=== PATIENT | male | born 1985 | race Caucasian/White ===

== ENCOUNTER 2022-09-13 07:27 | Emergency (ER) | payer OTHER ==
[~2022-09-13] VITALS: Ht 177.8 cm; Wt 90.7 kg
[2022-09-13] MEDS ORDERED: LIDOCAINE VISCUS 2% 15 ML UDC ONE (07:39)
[2022-09-13] MEDS ORDERED: ONDANSETRON 4 MG/2 ML VIAL ONE (07:39)
[2022-09-13] MEDS ORDERED: MORPHINE SULFATE 2 MG/1 ML DISP.SYRIN ONE (07:40)
[2022-09-13] MEDS ORDERED: MAG HYDROX/AL HYDROX/SIMETH 30 ML LIQUID UDC ONE (07:44)
[2022-09-13] MEDS ORDERED: FAMOTIDINE. 20 MG/2 ML VIAL IV ONE (07:45)
--- NOTE | 2022-09-13 07:55 | NUR ---
PT STATES HE HAS ABDOMINAL PAIN THAT STARTED YESTERDAY AND IS OFF AND ON AND STARTED THIS AM AGAIN; 09/04 PATI BLAIR
--- NOTE | 2022-09-13 07:58 | NUR ---
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
[2022-09-13] MEDS: ONDANSETRON 4 MG/2 ML VIAL IV ONE (07:59)
[2022-09-13] MEDS: FAMOTIDINE. 20 MG/2 ML VIAL IV ONE (07:59)
[2022-09-13] MEDS: MAG HYDROX/AL HYDROX/SIMETH 30 ML LIQUID UDC PO ONE (07:59)
[2022-09-13] MEDS: LIDOCAINE VISCUS 2% 15 ML UDC MM ONE (07:59)
[2022-09-13] MEDS: MORPHINE SULFATE 2 MG/1 ML DISP.SYRIN IV ONE (08:15)
[2022-09-13 08:17] LABS: CARBON DIOXIDE 28 mmol/L (21-32); CHLORIDE 106 mmol/L (98-107); CREATININE 1.1 mg/dL (0.6-1.3); GLUCOSE 99 mg/dL (74-106); POTASSIUM 3.8 mmol/L (3.5-5.1); UREA NITROGEN, BLOOD 10 mg/dL (7-18)
[2022-09-13 08:18] LABS: HEMATOCRIT 41.5 % (36.7-47.1); MEAN CORPUSCULAR HEMOGLOBIN 29.9 uug (23.8-33.4); MEAN CORPUSCULAR VOLUME 83.2 fL (73.0-96.2); PLATELET COUNT (AUTO) 225 K/uL (152-348)
[2022-09-13] MEDS: IV NORMAL SALINE 1000 ML BAG IV ONE (08:20)
[2022-09-13 08:24] LABS: ALANINE AMINOTRANSFERASE 33 U/L (16-63); ALKALINE PHOSPHATASE 108 U/L (50-136); ASPARTATE AMINOTRANSFERASE 21 U/L (15-37); BILIRUBIN,TOTAL 0.3 mg/dL (0.2-1.0); LIPASE 127 U/L (73-393); TOTAL PROTEIN, SERUM 7.2 g/dL (6.4-8.2)
[2022-09-13 08:26] LABS: BILIRUBIN,DIRECT < 0.1 mg/dL (0.0-0.2)
[2022-09-13 09:08] LABS: *BILIRUBIN,URIN NEGATIVE (NEGATIVE); *BLOOD, URINE NEGATIVE (NEGATIVE); *CLARITY,URINE CLEAR (CLEAR); *COLOR,URINE YELLOW (YELLOW); *KETONES,URINE NEGATIVE (NEGATIVE); *UROBILINOGEN,URINE 0.2 E.U./dl (NORMAL); LEUKOCYTE ESTERASE ,URINE NEGATIVE (NEGATIVE); NITRITE, URINE NEGATIVE (NEGATIVE); PH,URINE 8.5 (5.0-8.0); UGLUCOSE NEGATIVE (NEGATIVE)
[2022-09-13 09:45] LABS: ETHANOL < 3 MG/DL (0-0)
[2022-09-13 09:48] LABS: *AMPHETAMINE, URINE NEGATIVE (NEGATIVE); *CANNABINOID, URINE NEGATIVE (NEGATIVE); *COCCAINE, URINE NEGATIVE (NEGATIVE); *OPIATE, URINE POSITIVE (NEGATIVE); *PHENCYCLIDINE SCREEN,URINE NEGATIVE (NEGATIVE)
[2022-09-13] MEDS ORDERED: FAMO-132 PO (10:16)
[2022-09-13] MEDS ORDERED: HYDR-3974 PO (10:16)
[2022-09-13] MEDS ORDERED: SIME125C81 PO (10:16)
[2022-09-13] MEDS ORDERED: ONDA4TAB5 PO (10:16)
[2022-09-13 11:25] VITALS: BP 129/78
--- NOTE | 2022-09-13 11:26 | NUR ---
Patient discharged to home in stable condition. Written and verbal after care instructions given. Patient verbalizes understanding of instructions. Stressed follow up or return to ER for worsening s/s.
[2022-09-14] MEDS ORDERED: ACYC200C31 PO (18:24)
[2022-09-14] MEDS ORDERED: OXYC-128 PO (22:32)
[2022-09-14] MEDS ORDERED: LEVO500T90 PO (22:32)
[2022-09-14] MEDS ORDERED: METR500T PO (22:32)
== END 2022-09-13 11:25 | disposition home or self-care (01) ==
LOC: ER 07:29
DX: R10.12 Left upper quadrant pain (principal)
CPT/HCPCS: 80076; 80048; 81003; 83690; 85025; 87040 ×2; 36415; 71045; 74176; 99285; 96361; 96374; 96375; 80320; 80307; J3490; J2405; J2270; J7040; G0480

== ENCOUNTER 2022-09-14 18:07 | Emergency (ER) | payer OTHER ==
[~2022-09-14] VITALS: Ht 177.8 cm; Wt 90.7 kg
[~2022-09-14 18:07] MED LIST: FAMO-132 PO; HYDR-3974 PO; ONDA4TAB5 PO; SIME125C81 PO
[2022-09-14] MEDS ORDERED: ACYC200C31 PO (18:24)
--- NOTE | 2022-09-14 18:33 | NUR ---
Dr Arrieta at the bedside for MSE.
[2022-09-14] MEDS ORDERED: HYDROMORPHONE 1 MG/1 ML DISP.SYRIN IV ONE (18:45)
[2022-09-14] MEDS ORDERED: ONDANSETRON 4 MG/2 ML VIAL IV ONE (18:45)
[2022-09-14] MEDS ORDERED: IV NORMAL SALINE 1000 ML BAG IV ONE (18:45)
[2022-09-14] MEDS ORDERED: ONDANSETRON 4 MG/2 ML VIAL ONE (18:49)
[2022-09-14] MEDS ORDERED: HYDROMORPHONE 2 MG/1 ML DISP.SYRIN ONE (18:49)
[2022-09-14 19:03] LABS: HEMATOCRIT 43.1 % (36.7-47.1); MEAN CORPUSCULAR HEMOGLOBIN 29.2 uug (23.8-33.4); MEAN CORPUSCULAR VOLUME 83.8 fL (73.0-96.2); PLATELET COUNT (AUTO) 208 K/uL (152-348)
[2022-09-14 19:07] LABS: CREATININE 1.3 mg/dL (0.6-1.3); POTASSIUM 3.8 mmol/L (3.5-5.1)
--- NOTE | 2022-09-14 19:08 | NUR ---
Hands off report given to Dena ORELLANA.
--- NOTE | 2022-09-14 19:10 | NUR ---
Received report from Kamla ORELLANA.
[2022-09-14 19:21] LABS: BILIRUBIN,DIRECT 0.1 mg/dL (0.0-0.2); BILIRUBIN,TOTAL 0.7 mg/dL (0.2-1.0); TOTAL PROTEIN, SERUM 7.9 g/dL (6.4-8.2)
[2022-09-14] MEDS ORDERED: IV NS 1000 ML 1,000 ML IV ONE (20:45)
--- NOTE | 2022-09-14 21:10 | NUR ---
Patient walked to the bathroom with a steady gait. Friend at bedside.
--- NOTE | 2022-09-14 21:12 | NUR ---
Contacted Radiology to F/U with patient's results.
[2022-09-14] MEDS ORDERED: METRONIDAZOLE 500 MG/NS 100 ML PIGGYBACK IV ONE (21:30)
[2022-09-14] MEDS ORDERED: levoFLOXacin 500 MG/D5W 100ML PIGGYBACK IV ONE (21:30)
[2022-09-14] MEDS ORDERED: levoFLOXacin 500 MG/D5W 100 ML ONE (21:33)
[2022-09-14] MEDS ORDERED: METRONIDAZOLE 500 MG/NS 100ML 100 ML IV ONE (21:33)
[2022-09-14] MEDS ORDERED: METR500T PO (22:32)
[2022-09-14] MEDS ORDERED: LEVO500T90 PO (22:32)
[2022-09-14] MEDS ORDERED: OXYC-128 PO (22:32)
--- NOTE | 2022-09-14 22:48 | NUR ---
Patient discharged to home in stable condition. A/O x 4. NAD noted. Ambulatory with steady gait. All belongings with patient. Written and verbal after care instructions given. Patient verbalizes understanding of instructions. Stressed follow up or return to ER for worsening s/s.
[2022-09-14 22:54] VITALS: BP 130/71
== END 2022-09-14 22:48 | disposition home or self-care (01) ==
LOC: ER 18:07
DX: K52.9 Noninfective gastroenteritis and colitis, unspecified (principal); R11.2 Nausea with vomiting, unspecified; R10.12 Left upper quadrant pain; J98.11 Atelectasis
CPT/HCPCS: 99285; 96365; 71045; 96375; 96367; 96361; 80076; 80048; 83690; 85025; 36415; 93005; 74021; 83605; J1956; J3490; J2405; J1170; J7040 ×2; A4663

== ENCOUNTER 2022-09-16 12:06 | Emergency (ER) | payer OTHER ==
[~2022-09-16] VITALS: Ht 177.8 cm; Wt 90.7 kg
[~2022-09-16 12:06] MED LIST changes: +ACYC200C31 PO; +LEVO500T90 PO; +METR500T PO; -ONDA4TAB5 PO; +OXYC-128 PO; -SIME125C81 PO
[2022-09-16] MEDS ORDERED: LORAZEPAM 2 MG/1 ML VIAL IV ONE (12:15)
[2022-09-16] MEDS ORDERED: LORAZEPAM 2 MG/1 ML VIAL ONE (12:26)
[2022-09-16 12:51] LABS: HEMATOCRIT 42.5 % (36.7-47.1); MEAN CORPUSCULAR HEMOGLOBIN 29.1 uug (23.8-33.4); MEAN CORPUSCULAR VOLUME 82.8 fL (73.0-96.2); PLATELET COUNT (AUTO) 223 K/uL (152-348)
--- NOTE | 2022-09-16 13:09 | NUR ---
Patient is resting comfortably on gurney with eyes closed. PATIENT IS PAIN FREE AT THIS TIME.
[2022-09-16 13:10] LABS: ALANINE AMINOTRANSFERASE 30 U/L (16-63); ALKALINE PHOSPHATASE 87 U/L (50-136); ASPARTATE AMINOTRANSFERASE 17 U/L (15-37); BILIRUBIN,DIRECT 0.1 mg/dL (0.0-0.2); BILIRUBIN,TOTAL 0.6 mg/dL (0.2-1.0); CARBON DIOXIDE 24 mmol/L (21-32); CHLORIDE 102 mmol/L (98-107); CREATININE 1.3 mg/dL (0.6-1.3); GLUCOSE 110 mg/dL (74-106); POTASSIUM 3.4 mmol/L (3.5-5.1); TOTAL PROTEIN, SERUM 7.9 g/dL (6.4-8.2); UREA NITROGEN, BLOOD 14 mg/dL (7-18)
[2022-09-16] MEDS ORDERED: DICYCLOMINE HCL 20 MG TABLET PO STA (13:41)
[2022-09-16] MEDS ORDERED: PANTOPRAZOLE SODIUM IV 40 MG in IV DEXTROSE 5% 100 ML IV ONE (13:45)
[2022-09-16] MEDS ORDERED: PANTOPRAZOLE SODIUM 40 MG VIAL ONE (13:46)
[2022-09-16] MEDS ORDERED: DICYCLOMINE HCL 20 MG TABLET ONE (13:46)
[2022-09-16 14:33] LABS: *MONOTEST NEGATIVE (NEGATIVE)
--- NOTE | 2022-09-16 14:42 | NUR ---
IV removed. Catheter intact and site benign. Pressure and 4x4 gauze applied to site. No bleeding noted. Patient discharged to home in stable condition with slow steady gait. Written and verbal after care instructions given to aptient and partner. Patient and partner verbalized understanding and compliance of instructions. Stressed follow up with primary doctor and gastroenteritis or return to ER for worsening s/s.
== END 2022-09-16 14:43 | disposition home or self-care (01) ==
LOC: ER 12:08
DX: F41.0 Panic disorder [episodic paroxysmal anxiety] (principal); R10.12 Left upper quadrant pain
CPT/HCPCS: 99285; 96374; 71045; 96375; 80076; 80048; 83690; 85025; 86308; 84484; 36415; 93005; J2060; C9113 ×2; A4663